=== PATIENT | female | born 2000 | race Caucasian/White ===

== ENCOUNTER 2021-10-01 08:13 | Emergency (ER) | payer OTHER ==
[2021-10-01] MEDS ORDERED: IBUPROFEN600 MG PO (11:27)
[2021-10-01] MEDS ORDERED: NORFLEX 100 MG100 MG PO (11:27)
== END 2021-10-01 11:48 | disposition home or self-care (01) ==
LOC: ER1 08:13
DX: S39.012A Strain of muscle, fascia and tendon of lower back, initial encounter (principal); S00.83XA Contusion of other part of head, initial encounter; S80.212A Abrasion, left knee, initial encounter; V49.40XA Driver injured in collision with unspecified motor vehicles in traffic accident, initial encounter; W22.11XA Striking against or struck by driver side automobile airbag, initial encounter; Y92.410 Unspecified street and highway as the place of occurrence of the external cause
CPT/HCPCS: 70450; 70486; 71046; 72100; 73610; 84703; 99284

== ENCOUNTER 2021-11-28 21:03 | Emergency (ER) | payer OTHER ==
[~2021-11-28 21:03] MED LIST: IBUPROFEN600 MG PO; NORFLEX 100 MG100 MG PO
[2021-11-28 22:11] LABS: HEMOGLOBIN 12.9 gm/dl (12.3-15.3); RED BLOOD COUNT 4.4 M/UL (4.00-5.10); WHITE BLOOD COUNT 14.2 K/UL (4.5-11.0)
[2021-11-28 22:31] LABS: BUN/CREATININE RATIO 14 (0-10)
[2021-11-29] MEDS ORDERED: OMNICEF 300 MG300 MG PO (02:35)
== END 2021-11-29 02:53 | disposition home or self-care (01) ==
LOC: ER1 21:03
PROVIDERS: Physician Assistant
DX: O20.0 Threatened abortion (principal); Z3A.13 13 weeks gestation of pregnancy; O23.41 Unspecified infection of urinary tract in pregnancy, first trimester; N39.0 Urinary tract infection, site not specified
CPT/HCPCS: 80053; 81001; 83690; 84702; 84703; 85025; 86900; 86901; 99284